=== PATIENT | male | born 1975 | race Caucasian/White ===

== ENCOUNTER 2019-08-25 10:24 | Outpatient (CLI) | payer OTHER ==
--- NOTE | 2019-08-25 10:53 | SLEEP CARE CONSULTATION ---
Information from patient questionnaire entered by Soledad Blue. I have reviewed and concur with the information entered by Soledad Blue. This document represents the service I personally performed and the decisions made by me, Willi Marrero MD, [facility]. History of Present Illness Service Date and Time: 08/25/2019 1024 Reason for Visit: New patient Chief Complaint: reports: Unrefreshed sleep, Snoring, Fatigue Duration of Symptoms: 3-4 years Usual bedtime: 9:30-10:30 pm Time it takes to fall asleep: 5-15 mins Snores at night: Yes Observed to quit breathing while asleep: Yes Sleeps alone due to snoring: Yes Number of times waking at night: 0-1 Reasons for waking at night: reports: Other (children) Toss, Turn, or Twitch while sleeping: Yes (unknown) Recalls having dreams: No Usually gets out of bed at: 6-6:30 am Feels refreshed in the morning: No Morning headache: No Sleepy or fatigued during the day: Yes Ever fallen asleep while driving: No Takes day naps: No Dreams during day naps: No Prior sleep studies: No Additional HPI information: The patient is here mainly because his snore has gotten too loud for his . He has to occasionally sleep in a separate bedroom. His also witnesses apneic episodes. He feels sleepy and tired during the day. 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 Patient is and lives in [place]. Have you smoked in the past 12 months: No Cigarettes per day (20/pack): 20 Years of smokin Quit date: 03/2016 Smoking Pack Years: 20.0 Alcohol use: Yes Alcohol amount and frequency: 2-3 beers once every couple weeks Caffeine use: Yes Caffeine amount and frequency: 2 cups of coffee daily Family History Family history of sleep disordered breathing: No Allergies and Home Medications Drug allergies reviewed: Yes Home medication list reviewed: Yes (Zyrtec and Flonase) Review of Systems Weight gain over past 5 years: 10 Cardiovascular: denies: high blood pressure, palpitations, chest pain, irregular heart rate or pulse, leg or foot swelling, have to sleep sitting up, other Respiratory: denies: shortness of breath, wheeze, sputum production, chronic cough, other Gastrointestinal: denies: heartburn, difficulty swallowing, nausea, vomitting, diarrhea, abdominal pain, other Urinary: denies: incontinence, frequency, urgency, impotence, other Neurological: denies: headaches, seizure, head trauma, disorientation, speech dysfunction, gait or balance problems, fainting or unconsciousness, other Psychiatric: denies: Attention Deficit Hyperactivity, anxiety, depression, mood disorder, claustrophobia, other Ear/Nose/Throat: reports: nasal congestion Endocrine: reports: sluggishness Musculoskeletal: reports: joint pain, back pain Immunologic: reports: sneezing, itching Physical Exam Vital signs obtained and entered by: Exam is deferred to comply with the COVID- 19 precautions. Height: 6 ft 4 in Weight: 233 lb Body Mass Index: 28.3 BMI Classification: Overweight Impression and Plan IMPRESSION: 1. Obstructive Sleep Apnea-Hypopnea Syndrome, as suggested by history of loud and irregular snoring, observed cessation of breath while asleep, unrefreshed sleep, and daytime hypersomnolence. Narrow oropharynx and obesity are common predisposing factors for obstructive sleep apnea-hypopnea syndrome. Pathophysiology of sleep-disordered breathing was discussed. I recommend proceeding to polysomnography to confirm the diagnosis and to assess severity. If he has significant sleep disordered breathing, a manual CPAP titration study will also be performed to find the optimal treatment pressure. I informed the patient of what the sleep studies involve and after some discussion, he agreed to proceed. Plan: 1. Schedule an in-laboratory polysomnography + manual CPAP titration study 2. Avoid long distance driving or when feeling sleepy. 3. Avoid alcohol, sedative and muscle relaxant around bedtime. 4. Attempt to lose some weight. 5. Return in 1 to 2 weeks after the study to discuss results and initiate therapy. Time Spent with Patient (minutes): 15
== END 2019-08-25 10:25 | disposition home or self-care (01) ==
LOC: SC 10:24
PROVIDERS: ATTEND Internal Medicine Pulmonary Disease
DX: R06.83 Snoring (principal); R06.81 Apnea, not elsewhere classified; G47.10 Hypersomnia, unspecified; R53.83 Other fatigue; G47.8 Other sleep disorders; E66.3 Overweight; Z68.28 Body mass index [BMI] 28.0-28.9, adult
CPT/HCPCS: 99203; 99212

== ENCOUNTER 2019-09-10 20:47 | Outpatient (CLI) | payer OTHER | END 2019-09-10 20:48 | disposition home or self-care (01) | LOC: SC 20:47 | PROVIDERS: ATTEND Internal Medicine Pulmonary Disease | DX: G47.33 Obstructive sleep apnea (adult) (pediatric) (principal); E66.3 Overweight; Z68.28 Body mass index [BMI] 28.0-28.9, adult | CPT/HCPCS: 95810 ==

== ENCOUNTER 2019-10-06 10:04 | Outpatient (CLI) | payer OTHER ==
--- NOTE | 2019-10-06 10:42 | SLEEP CARE CONSULTATION ---
Information from patient questionnaire entered by Soledad Blue. I have reviewed and concur with the information entered by Soledad Blue. This document represents the service I personally performed and the decisions made by , Nimisha Quiroga ARNP. History of Present Illness Service Date and Time: 10/06/2019 1004 Initial [place] Sleepiness Scale score: 14 (in 2020) Current [place] Sleepiness Scale score: 16 Additional HPI information: ERVIN CHEW returns for follow up and results of the recently performed polysomnography. I explained the pathophysiology behind obstructive sleep apnea. We then spent quite a bit of time discussing different treatment options. For mild obstructive sleep apnea, surgery and oral appliance are alternatives to nasal CPAP therapy but in moderate or severe cases, nasal CPAP is the most effective and reliable treatment. Because apnea is primarily in supine position, then positional management therapy could be effective. Methods discussed such as positioning with pillows, using a T-shirt with tennis balls in the back, and shown commercial products that have a pillow format on back to prevent supine sleep. I reviewed the impact of weight changes on sleep apnea and strongly recommended losing weight. After some discussion, the patient opted to go with the nasal CPAP therapy. Nasal autoCPAP set at [id number] will be ordered with rationale explained. A manual titration study will be ordered if unable to find optimal pressure with office adjustments. I explained how CPAP machine works with sample devices [employer] Dreamstation and [email or web address] [id number] and what to expect when using the machine. Using CPAP every night in order to get used to it was emphasized. Patient advised to put CPAP mask on before getting into bed so as not to fall asleep without CPAP. To assist acclimation to CPAP use, it could also be used for a short time during day while reading or watching TV. The patient was instructed to call the CPAP supplier to discuss any mechanical problem that may occur. If the mask given is uncomfortable or is difficult to keep on through the night even with adjustment, contact the CPAP supplier as many will replace with another mask style if notified before 30 days. If snoring or perceives is not getting enough air or too much air from the machine, notify this office. [facility] patient education PAP tips and Non Pap treatment pamphlets reviewed and given to patient. Patient counseled not drink alcohol less than 4 hours before bedtime as it can increase snoring and apnea. Patient was cautioned about risks of drowsy driving until sleepiness symptoms resolve. Sleep Study - Results Type of Sleep Study: Polysomnography Polysomnography/Home Sleep Study results: IMPRESSION: The quality of the study is good. The patient had normal sleep efficiency. The sleep architecture was abnormal for sleep fragmentation and reduced amount of time spent in slow wave sleep (N3). Respiratory monitoring showed moderate obstructive sleep apnea-hypopnea (AHI = 20.8) associated with frequent arousals, oxyhemoglobin desaturation and moderate hypoxia (smooth oxygen saturation of 79 %). Baseline oxygen saturation was normal. The respiratory events occurred mainly during supine sleep (supine AHI = 27.9; non-supine = 6.95). Snore was loud in intensity. There was no significant periodic leg movement of sleep. Cardiac rhythm was normal sinus rhythm with occasional premature ventricular contractions. No abnormal behavior (parasomnia) observed during the night. CONCLUSIONS and RECOMMENDATIONS: 1. The patient has moderate obstructive sleep apnea-hypopnea. ICD-10 G47.33. Positive airway pressure therapy is indicated. Other types of therapy such as upper airway surg robert and oral appliance may be considered depending of clinical findings. A follow up manual CPAP/bi-level titration study is recommended to find the optimal treatment pressure if positive airway pressure therapy is going to be utilized. With BMI of 28.4 Kg/M2, some weight loss is also recommended. Allergies and Home Medications Drug allergies reviewed: Yes (seasonal, no drug allergies) Review of Systems Review of systems same as previous: Yes (no changes) Physical Exam Heart Rate: 82 O2 Saturation: 98 Height: 6 ft 4 in Weight: 235 lb 6.4 oz Body Mass Index: 28.6 BMI Classification: Overweight Impression and Plan 1. Obstructive Sleep Apnea-Hypopnea Syndrome, moderate, with lowest oxygen saturation of 79%. Obviously this is the cause of the patients symptoms of unrefreshed sleep, and excessive daytime sleepiness. Positive pressure therapy could benefit his daytime sleepiness, snoring, fatigue and witness apneas. He had normal sinus rhythm with occasional premature ventricular contractions. He states his mother and sister have these as well. He was encouraged to follow up with PCP on the PVCs to see if further evaluation is warranted. As mentioned above, the patient will be started on nasal autoCPAP therapy with pressure set at 4-15 cmH2O. Compliance guidelines also reviewed. A copy of compliance guidelines will be given for reference at check out. Because the apnea is more severe supine, I instructed to avoid sleeping supine using pillow positioning until able to start CPAP use. * Nasal auto CPAP therapy, pressure at _4-15_ cm H2O. * Attempt to lose weight. * Avoid alcohol consumption near bedtime. * Avoid supine sleep until using CPAP. * The patient is again cautioned about driving until sleepiness completely resolves. * Return one month after CPAP obtained. I will assess response to therapy and compliance at that time. Visit Type: In Office Time Spent with Patient (minutes): 22 Provider Statement: I spent 100% of the Face to Face Visit with the patient with greater than 50% spent counseling the patient and coordination of care.
== END 2019-10-06 10:05 | disposition home or self-care (01) ==
LOC: SC 10:04
PROVIDERS: ATTEND Nurse Practitioner Family
DX: G47.33 Obstructive sleep apnea (adult) (pediatric) (principal); E66.3 Overweight; Z68.28 Body mass index [BMI] 28.0-28.9, adult
CPT/HCPCS: 99212; 99213

== ENCOUNTER 2019-12-01 07:52 | Outpatient (CLI) | payer OTHER ==
--- NOTE | 2019-12-01 08:26 | SLEEP CARE CONSULTATION ---
Information from patient questionnaire entered by Rose Lai. I have reviewed and concur with the information entered by Rose Lai. This document represents the service I personally performed and the decisions made by me, Nimisha Quiroga ARNP. History of Present Illness Service Date and Time: 12/01/2019 0752 Previous diagnosis: Moderate, Obstructive Sleep Apnea-Hypopnea Syndrome AHI: 20.8 Reason for follow up: first compliance Equipment type: CPAP Equipment obtained from: [employer] (getting supplies as needed) Mask style: Nasal Backup mask available: Yes (full face) Last cushion change: 1 week ago [facility]: Yes [email or web address] of [facility] Study: Polysomnography HPI additional information: ERVIN CHEW was diagnosed to have moderate, AHI 20.8, obstructive sleep apnea- hypopnea syndrome and returned today for CPAP therapy first compliance follow- up. Sleep Study - Results Prior sleep studies: No CPAP Compliance Data - Data Reviewed with Patient Average duration of nightly device use: 7 hours 1 minute Compliance rate %: 100 Current pressure setting (cmH2O): 4-15 Average residual AHI: 0.3 Central apnea: 0.1 Obstructive apnea: 0.0 Average large leak: 3.3 Subjective Patient concerns: reports: air blowing in eyes (once adjusted no air in eyes), nasal congestion (using Breathe right stips and a nasal spray prescribed by physician/works well). denies: aerophagia, mask discomfort, mask leak noise, condensation in mask/hose (turned down humidity), dry mouth, nose, throat, epistaxis, other Observed to snore while using device: No Current pressure setting perceived as: comfortable On therapy, patient: reports: sleeping better, awakening more refreshed, being more awake and alert during the day, more rested overall. denies: drowsiness while driving Initial [place] Sleepiness Scale score: 14 (in 2020) Current [place] Sleepiness Scale score: 9 Allergies and Home Medications Drug allergies reviewed: Yes (NKDA) Home medication list reviewed: Yes (Afrin, other nasal spray) Review of Systems Review of systems same as previous: Yes (no changes) Physical Exam Heart Rate: 60 O2 Saturation: 98 Height: 6 ft 4 in Weight: 236 lb Body Mass Index: 28.7 BMI Classification: Overweight Impression and Plan 1. Obstructive Sleep Apnea-Hypopnea Syndrome, moderate, with great treatment compliance and great apnea control. On therapy, there is improved sleep quality and feels more rested overall. Patient having some nasal congestion issues but is using a nasal spray and Breathe right strips with good improvement. He started with a full face mask but found it caused his face to sweat around the edges. He was mistakenly sent an over the nose mask that he thinks is working much better, without the sweating of his skin. He states he will continue to use the nasal mask. His pressure feels comfortable and his residual AHI is 0.3. I will adjust to pressure range he is using according to his compliance report and follow up in about 1-2 months for reevaluation. Patient's apnea severity and rationale for treatment to reduce apnea, improve sleep quality and reduce cardiovascular and cerebrovascular events was reviewed. I also reviewed the benefit of consistent device use of CPAP for his overall health. Change auto CPAP pressure at 8-12 cm H2O. Notify me if snoring with the mask or feeling that the pressure is too much or too little. Attempt to lose weight. Return for follow-up in 1-2 months, or sooner if concerns arise. Visit Type: In Office Time Spent with Patient (minutes): 22 Provider Statement: I spent 100% of the Face to Face Visit with the patient with greater than 50% spent counseling the patient and coordination of care.
== END 2019-12-01 07:53 | disposition home or self-care (01) ==
LOC: SC 07:52
PROVIDERS: ATTEND Nurse Practitioner Family
DX: G47.33 Obstructive sleep apnea (adult) (pediatric) (principal); E66.3 Overweight; Z68.28 Body mass index [BMI] 28.0-28.9, adult
CPT/HCPCS: 99212; 99213

== ENCOUNTER 2020-01-01 07:56 | Outpatient (CLI) | payer OTHER ==
--- NOTE | 2020-01-01 08:18 | SLEEP CARE CONSULTATION ---
Information from patient questionnaire entered by Soledad Blue. I have reviewed and concur with the information entered by Soledad Blue. This document represents the service I personally performed and the decisions made by , Nimisha Quiroga ARNP. History of Present Illness Service Date and Time: 01/01/2020 0756 Previous diagnosis: Moderate, Obstructive Sleep Apnea-Hypopnea Syndrome AHI: 20.8 (in 2019) Reason for follow up: one month (with pressure change) Equipment type: CPAP Equipment obtained from: [employer] (getting supplies as needed) Mask style: Nasal Mask brand: Resmed Backup mask available: Yes (other mask) Last cushion change: 1 month Prior sleep studies: Yes Year and Where: 2019 - [facility] Type of Sleep Study: Polysomnography HPI additional information: ERVIN CHEW was diagnosed to have moderate, AHI 20.8, obstructive sleep apnea- hypopnea syndrome and returned today for CPAP therapy one month follow-up. Sleep Study - Results Prior sleep studies: No CPAP Compliance Data - Data Reviewed with Patient Average duration of nightly device use: 7.1 Compliance rate %: 100 Current pressure setting (cmH2O): 8-12 Humidity settin Average residual AHI: 0.3 Average large leak: 5.8 L/min Subjective Patient concerns: reports: air blowing in eyes (improves with adjustment), nasal congestion (using nasal spray for congestion as needed). denies: aerophagia, mask discomfort, mask leak noise, condensation in mask/hose, dry mouth, nose, throat, epistaxis, other Observed to snore while using device: No Current pressure setting perceived as: comfortable On therapy, patient: reports: sleeping better, awakening more refreshed, being more awake and alert during the day, more rested overall. denies: drowsiness while driving Initial [place] Sleepiness Scale score: 14 (in 2020) Current [place] Sleepiness Scale score: 10 Allergies and Home Medications Drug allergies reviewed: Yes (NKDA) Home medication list reviewed: Yes (no changes) Review of Systems Review of systems same as previous: Yes (no changes) Physical Exam Heart Rate: 64 O2 Saturation: 95 Height: 6 ft 4 in Weight: 233 lb Body Mass Index: 28.3 BMI Classification: Overweight Impression and Plan 1. Obstructive Sleep Apnea-Hypopnea Syndrome, moderate, with excellent treatment compliance and good apnea control. On CPAP therapy, the patient has better sleep quality and is more rested overall. He has had some nasal congestion at onset of night trying to use the CPAP. He has tried Breathe right strips with a nasal spray (unsure of name) which does reduce congestion. Nasal congestion can be reduced with increasing the CPAP humidity as shown on sample device. The heated hose can be adjusted higher if condensation with higher humidity setting. Saline nasal spray sample was also given to use prior to CPAP to clear nasal secretions and wash off any nasal allergens to facilitate nasal breathing. Patient's apnea severity and rationale for treatment to reduce apnea, improve sleep quality and reduce cardiovascular and cerebrovascular events was reviewed. * Continue autoCPAP pressure at 8-12 cmH2O * Notify me if snoring with mask or feeling that the pressure is too much or too little * Attempt to lose weight * Call this office if any problems using CPAP * Return for follow up in 3 months, or sooner if concerns arise Counseling Topics: Spare mask Visit Type: In Office Time Spent with Patient (minutes): 18 Provider Statement: I spent 100% of the Face to Face Visit with the patient with greater than 50% spent counseling the patient and coordination of care.
== END 2020-01-01 07:57 | disposition home or self-care (01) ==
LOC: SC 07:56
PROVIDERS: ATTEND Nurse Practitioner Family
DX: G47.33 Obstructive sleep apnea (adult) (pediatric) (principal); E66.3 Overweight; Z68.28 Body mass index [BMI] 28.0-28.9, adult
CPT/HCPCS: 99212

== ENCOUNTER 2020-03-30 07:46 | Outpatient (CLI) | payer OTHER ==
--- NOTE | 2020-03-30 08:14 | SLEEP CARE CONSULTATION ---
Information from patient questionnaire entered by Soledad Blue. I have reviewed and concur with the information entered by Soledad Blue. This document represents the service I personally performed and the decisions made by , Nimisha Quiroga ARNP. History of Present Illness Service Date and Time: 03/30/2020 0746 Previous diagnosis: Moderate, Obstructive Sleep Apnea-Hypopnea Syndrome AHI: 20.8 (in 2019) Reason for follow up: three month Equipment type: CPAP Equipment obtained from: [employer] (getting supplies as needed) Mask style: Nasal pillows Backup mask available: Yes (other masks) Last cushion change: last week Prior sleep studies: Yes Year and Where: 2019 - [facility] Type of Sleep Study: Polysomnography HPI additional information: ERVIN CHEW was diagnosed to have moderate, AHI 20.8, obstructive sleep apnea- hypopnea syndrome and returned today for CPAP therapy three month follow-up. CPAP Compliance Data - Data Reviewed with Patient Average duration of nightly device use: 7 hr 31 min Compliance rate %: 96 (90 days) Current pressure setting (cmH2O): 8-12 Humidity settin Average residual AHI: 0.3 Subjective Missed days of use due to: reports: other (power outage) Patient concerns: denies: aerophagia, mask discomfort, air blowing in eyes, mask leak noise, condensation in mask/hose, nasal congestion, dry mouth, nose, throat, epistaxis, other Observed to snore while using device: No Current pressure setting perceived as: comfortable On therapy, patient: reports: sleeping better, awakening more refreshed, being more awake and alert during the day, more rested overall. denies: drowsiness while driving Initial [place] Sleepiness Scale score: 14 (in 2019) Current [place] Sleepiness Scale score: 11 Allergies and Home Medications Drug allergies reviewed: Yes (NKDA) Home medication list reviewed: Yes (no changes) Review of Systems Review of systems same as previous: Yes (no changes) Physical Exam Heart Rate: 64 O2 Saturation: 97 Height: 6 ft 4 in Weight: 243 lb Body Mass Index: 29.5 BMI Classification: Overweight Impression and Plan 1. Obstructive Sleep Apnea-Hypopnea Syndrome, moderate, with good treatment compliance and excellent apnea control. On CPAP therapy, the patient has better sleep quality and is more rested overall. He has been able to lose about 8 pounds with starting walking daily since end of February. He was encouraged to continue his new exercise routine for continued weight loss. Patient's apnea severity and rationale for treatment to reduce apnea, improve sleep quality and reduce cardiovascular and cerebrovascular events was reviewed. * Continue auto CPAP pressure at 8-12 cmH2O * Notify me if snoring with mask or feeling that the pressure is too much or too little * Continue exercise to continue to lose weight * Call this office if any problems using CPAP * Return for follow up in 1 year, or sooner if concerns arise Counseling Topics: Spare mask, Weight loss health impact Visit Type: In Office Time Spent with Patient (minutes): 14 Provider Statement: I spent 100% of the Face to Face Visit with the patient with greater than 50% spent counseling the patient and coordination of care.
== END 2020-03-30 07:47 | disposition home or self-care (01) ==
LOC: SC 07:46
PROVIDERS: ATTEND Nurse Practitioner Family
DX: G47.33 Obstructive sleep apnea (adult) (pediatric) (principal); E66.3 Overweight; Z68.29 Body mass index [BMI] 29.0-29.9, adult
CPT/HCPCS: 99212

== ENCOUNTER 2022-06-29 12:45 | Outpatient (CLI) | payer OTHER ==
[2022-06-29 13:15] VITALS: BP 126/70
--- NOTE | 2022-06-29 13:15 | SLEEP CARE CONSULTATION ---
Information from patient questionnaire entered by Astrid Hdz. I have reviewed and concur with the information entered by Astrid Hdz. This document represents the service I personally performed and the decisions made by me, Nimisha Quiroga ARNP. History of Present Illness Service Date and Time: 06/29/2022 1245 Previous diagnosis: Moderate, Obstructive Sleep Apnea-Hypopnea Syndrome AHI: 20.8 (in 2019) Reason for follow up: annual (LAST SEEN 03/2020) Equipment type: CPAP (RESMED Airsense 10, s/u 10/2019) Equipment obtained from: [facility] (getting supplies as needed) Mask style: Nasal pillows Mask brand: Resmed (P10) Backup mask available: Yes (old mask) Last cushion change: last month Prior sleep studies: Yes Year and Where: 2019 - [facility] Type of Sleep Study: Polysomnography HPI additional information: ERVIN CHEW was diagnosed to have moderate, AHI 20.8, obstructive sleep apnea- hypopnea syndrome and returned today for CPAP therapy annual follow-up. Sleep Study - Results Type of Sleep Study: Polysomnography Prior sleep studies: Yes Year and Where: 2019 - [facility] CPAP Compliance Data - Data Reviewed with Patient Average duration of nightly device use: 7 HRS 33 MINS Compliance rate %: 99 (12/30/22-06/27/22; 180/180 days used) Current pressure setting (cmH2O): 8-12 Average residual AHI: 0.3 Central apnea: 0.1 Obstructive apnea: 0.1 Average large leak: 3.9 lpm Subjective Missed days of use due to: reports: other (power outage) Patient concerns: reports: aerophagia, mask discomfort, air blowing in eyes, mask leak noise, condensation in mask/hose, nasal congestion, dry mouth, nose, throat, epistaxis Observed to snore while using device: No Current pressure setting perceived as: comfortable On therapy, patient: reports: sleeping better, awakening more refreshed, being more awake and alert during the day, more rested overall. denies: drowsiness while driving Initial [place] Sleepiness Scale score: 14 (in 2019) Current [place] Sleepiness Scale score: 7 (06/29/22) Allergies and Home Medications Known drug allergies: No Drug allergies reviewed: Yes Home medication list reviewed: Yes (no changes) Review of Systems Review of systems same as previous: Yes (no changes) Physical Exam Vital signs obtained and entered by: ASTRID Wheeler MA Blood Pressure: 126/70 (LEFT ARM) Cuff size: regular Heart Rate: 95 O2 Saturation: 98 Height: 6 ft 4 in Weight: 252 lb 6.4 oz (clothes/shoes on) Weight change since last visit: 9 lb gain Body Mass Index: 30.7 BMI Classification: Obese Impression and Plan 1. Obstructive Sleep Apnea-Hypopnea Syndrome, moderate, with good treatment compliance and good apnea control. On CPAP therapy, the patient has better sleep quality and is more rested overall. Patient has significant improvement of their sleep apnea and is satisfied with current CPAP therapy. Patient denies problems with oral dryness, nasal congestion, epistaxis, skin irritation or aerophagia. I will update supply prescription and he may follow-up in 1 year. Patient's apnea severity and rationale for treatment to reduce apnea, improve sleep quality and reduce cardiovascular and cerebrovascular events was reviewed. 2. Obesity, unspecified. Currently patients BMI is 30.7. Obesity increases the risk of apnea, CPAP pressure requirements and overall health risks especially cardiovascular and diabetes. Thus patient is advised to lose weight. * Continue auto CPAP pressure at 8-12 cmH2O * Update supplies * Notify me if snoring with mask or feeling that the pressure is too much or too little * Attempt to lose weight * Call this office if any problems using CPAP * Return for follow up in 1 year, or sooner if concerns arise Counseling Topics: Spare mask, Weight loss health impact Visit Type: In Office Time Spent with Patient (minutes): 20 Provider Statement: I spent 100% of the Face to Face Visit with the patient with greater than 50% spent counseling the patient and coordination of care.
== END 2022-06-29 12:46 | disposition home or self-care (01) ==
LOC: SC 12:45
PROVIDERS: ATTEND Nurse Practitioner Family
DX: G47.33 Obstructive sleep apnea (adult) (pediatric) (principal); E66.9 Obesity, unspecified; Z68.30 Body mass index [BMI] 30.0-30.9, adult
CPT/HCPCS: 99212; 99213